=== PATIENT | male | born 1975 | race Caucasian/White ===

== ENCOUNTER 2021-09-12 09:27 | Emergency (ER) | payer BC, SELFPAY ==
--- NOTE | ~2021-09-12 | XR_ITS ---
EXAMINATION: XR ankle RT min 3V INDICATION: Right ankle pain, initial encounter TECHNIQUE: Four views of the right ankle are obtained. COMPARISON: None available FINDINGS: There is diffuse soft tissue swelling of ankle. There are chronic appearing well-corticated heterotopic ossification near the tip of the medial and lateral malleoli. There is a thin linear het erotopic ossification lateral to the lateral malleolus. There is no dislocation or subluxation. IMPRESSION: 1. Possible avulsion injury at the lateral aspect of the lateral malleolus. 2. Findings consistent with prior bilateral malleolar fractures. Reviewed, dictated and finalized at location B.
[2021-09-12 09:34] VITALS: BP 186/90; PULSE 90; RESP 16; TEMP 37.1; O2SAT 99
--- NOTE | 2021-09-12 09:46 | ED.LOWEXIN ---
HPI - Extremity Injury (Lower) General Chief Complaint: Extremity Injury, Lower Stated Complaint: right ankle pain Source: patient and RN notes reviewed Mode of arrival: ambulatory Limitations: no limitations History of Present Illness HPI Narrative: Alexis is a 46-year-old male patient who ambulated into the [facility] with complaint of right ankle pain and swelling. Patient states he was winterizing his camper last night and stepped out and twisted his ankle. Patient has been using Motrin and ice without relief. Patient rates his pain 7 out of 10. Patient has a history of previous ankle injuries and an ankle fracture 30 years ago on his right ankle. MD complaint: ankle injury Related Data Home Medications Medication Instructions Recorded Confirmed No Home Medications 09/12/21 09/12/21 Allergies Allergy/AdvReac Type Severity Reaction Status Date / Time No Known Allergies Allergy Unverified 09/12/21 09:44 Review of Systems Review of Systems: CONSTITUTIONAL: Denies body aches, fever, chills, or sweats. EYES: Denies visual changes, redness, or discharge. ENT: Denies rhinorrhea, congestion, sore throat, or otalgia. CARDIOVASCULAR: Denies chest pain, palpitations, or edema. RESPIRATORY: Denies cough or dyspnea. GASTROINTESTINAL: Denies abdominal pain, nausea, vomiting, or diarrhea. GENITOURINARY: Denies dysuria or hematuria. SKIN: Denies rash, itching, or wounds. MUSCULOSKELETAL: Denies back pain,+ right ankle pain . NEUROLOGIC: Denies headache, numbness, tingling, or weakness. PSYCH: Denies depression or anxiety. All systems reviewed & are unremarkable except as noted in HPI and below PMFSH Comments At time of signature, I have reviewed and agree with nursing past medical, surgical, social and family history unless otherwise noted. Please see nursing chart for further information. There is no relevant family history pertinent to the presenting complaint Exam Narrative: GENERAL: Well-appearing, well-nourished, and in no acute distress. HEAD: Normocephalic, atraumatic. EYES: EOMI. No redness or drainage. Conjunctivae normal. ENT: Mucous membranes pink and moist. Nares clear. No rhinorrhea. TMs normal bilaterally. Throat normal. Uvula midline. NECK: Normal AROM. Supple. No lymphadenopathy. CHEST: No respiratory distress. Clear to auscultation. HEART: Regular rate and rhythm. No murmur appreciated. Normal peripheral pulses. ABDOMEN: Soft, nontender, nondistended, normal active bowel sounds. MUSCULOSKELETAL: No bony tenderness. EXTREMITIES: edema to right lateral malleolus, minimal bruising, distal sensation intact, capillary refill < 2 seconds. SKIN: Warm, dry, no rash. Capillary refill normal. Normal skin turgor. NEURO: No focal deficits. Alert and oriented x3. Gait steady. PSYCH: Normal affect. No signs of depression or anxiety. Course Vital Signs Vital signs: Vital Signs Temperature 37.1 C 09/12/21 09:34 Pulse Rate 90 09/12/21 09:34 Respiratory Rate 16 09/12/21 09:34 Blood Pressure 186/90 H 09/12/21 09:34 Pulse Oximetry 99 09/12/21 09:34 Temperature 37.1 C 09/12/21 09:34 Pulse Rate 90 09/12/21 09:34 Respiratory Rate 16 09/12/21 09:34 Blood Pressure 186/90 H 09/12/21 09:34 Pulse Oximetry 99 09/12/21 09:34 Reviewed. Pt has been instructed to follow up with his PCP regarding his elevated blood pressure today. MDM - Extremity Injury (Lower) MDM Narrative Medical decision making narrative: Impressions Ankle X-Ray 09/12/21 09:47 IMPRESSION: 1. Possible avulsion injury at the lateral aspect of the lateral malleolus. 2. Findings consistent with prior bilateral malleolar fractures. Right ankle x-ray shows possible avulsion injury at the lateral aspect of the malleolus. Patient has a large amount of swelling over the right lateral malleolus. Patient was instructed to stay nonweightbearing until seen by the orthopedist. Patient is to call today to
== END 2021-09-12 10:08 | disposition home or self-care (01) ==
PROVIDERS: Emergency Provider Nurse Practitioner Family
DX: S82.891A Other fracture of right lower leg, initial encounter for closed fracture (principal); X50.9XXA Other and unspecified overexertion or strenuous movements or postures, initial encounter
CPT/HCPCS: 73610; 99214; G0463

== ENCOUNTER 2022-12-18 16:52 | Emergency (ER) | payer BC, SELFPAY ==
--- NOTE | 2022-12-18 16:54 | ED.UPPEXIN ---
HPI - Extremity Injury (Upper) General Chief Complaint: Extremity Injury, Upper Stated Complaint: right shoulder pain Time Seen by Provider: 12/18/22 16:54 Source: patient Mode of arrival: ambulatory Limitations: no limitations History of Present Illness HPI narrative: Ruperto is a 47-year-old male patient presenting to the clinic today with complaints of right shoulder pain and neck pain since Friday. He reports pain is now radiating down his right arm. He denies any shortness of breath or chest pain. States the pain is an aching sharp pain. Denies any known injury to his shoulder or neck. States he is use ibuprofen, naproxen, heat, and ice with minimal relief. Currently rates his pain 06/19 Related Data Allergies Allergy/AdvReac Type Severity Reaction Status Date / Time No Known Allergies Allergy Verified 12/18/22 16:57 Review of Systems Review of Systems: Pertinent positives per HPI. Patient denies any fever, chills, rash, headache, visual changes, dizziness, cough, runny nose, sore throat, shortness of breath, chest pain, palpitations, nausea, vomiting, diarrhea, constipation, abdominal pain, or any urinary issues. PMFSH Comments At the time of my signature, I reviewed and agree with the nursing past medical, surgical, social, and family history. There is no relevant family history pertinent to the patient complaint. Exam Narrative: General: Well-developed, well nourished, in no apparent distress Head: Normocephalic, atraumatic. Cardio: Regular rate and rhythm, s1 and s2 normal, no murmur appreciated. Resp: Clear to auscultation bilaterally, no rhonchi, rales, wheezing or rubs. Musculoskeletal: No deformity, tenderness to palpation over the right rhomboid and trapezius musculature of the right shoulder/neck, grossly normal range of motion, muscle strength strong and equal, peripheral pulse strong, no edema, no cyanosis, normal gait and station Course Course Emergency Course: Portions of this record may have been created with voice recognition software. Level of Care: Express Care Visit Vital Signs Vital signs: Vital Signs Temperature 36.7 C 12/18/22 16:57 Pulse Rate 88 12/18/22 16:57 Respiratory Rate 18 12/18/22 16:57 Blood Pressure 187/111 H 12/18/22 16:57 Pulse Oximetry 100 12/18/22 16:57 Oxygen Delivery Room Air 02/08/23 16:57 Temperature 36.7 C 12/18/22 16:57 Pulse Rate 88 12/18/22 16:57 Respiratory Rate 18 12/18/22 16:57 Blood Pressure 187/111 H 12/18/22 16:57 Pulse Oximetry 100 12/18/22 16:57 Oxygen Delivery Room Air 12/18/22 16:57 Vital signs reviewed MDM - Extremity Injury (Upper) MDM Narrative Medical decision making narrative: At the time of visit patient is resting comfortably on the exam table. I suspect the patient has a right rhomboid/trapezius muscle strain. Prescriptions for prednisone and Flexeril was sent to pharmacy and supportive measures were discussed with the patient he voiced understanding discharge instructions and agrees to treatment plan. Differential Diagnosis Differential diagnosis: Likely dislocation of shoulder and other (Shoulder strain, shoulder tendinitis,) Discharge Plan Discharge Clinical Impression: Strain of rhomboid muscle Qualifiers: Encounter type: initial encounter Qualified Code(s): S29.012A - Strain of muscle and tendon of back wall of thorax, initial encounter Strain of right trapezius muscle Qualifiers: Encounter type: initial encounter Qualified Code(s): S46.811A - Strain of other muscles, fascia and tendons at shoulder and upper arm level, right arm, initial encounter Patient Disposition: Home, Self-Care Condition: Stable Instructions: Antibiotic Form, Muscle Strain (ED) Additional Instructions: Take any prescription medication only as prescribed-Flexeril and prednisone Be mindful of sedation precautions given to you if taking a muscle relaxer. May use heat or ice to the affected area Cons
[2022-12-18 16:57] VITALS: BP 187/111; PULSE 88; RESP 18; TEMP 36.7; O2SAT 100
== END 2022-12-18 17:13 | disposition home or self-care (01) ==
PROVIDERS: Emergency Provider Nurse Practitioner Family
DX: S29.012A Strain of muscle and tendon of back wall of thorax, initial encounter (principal); S46.811A Strain of other muscles, fascia and tendons at shoulder and upper arm level, right arm, initial encounter; Z79.1 Long term (current) use of non-steroidal anti-inflammatories (NSAID); X58.XXXA Exposure to other specified factors, initial encounter
CPT/HCPCS: 99213; G0463